=== PATIENT | female | born 1980 | race Caucasian/White ===

== ENCOUNTER 2022-02-16 17:05 | Emergency (ER) | payer MEDICAID | END 2022-02-16 19:28 | disposition home or self-care (01) | LOC: JP.ED 17:05 | DX: S93.501A Unspecified sprain of right great toe, initial encounter (principal); S90.31XA Contusion of right foot, initial encounter; F17.210 Nicotine dependence, cigarettes, uncomplicated; Z88.0 Allergy status to penicillin; W20.8XXA Other cause of strike by thrown, projected or falling object, initial encounter | CPT/HCPCS: 73630-26-RT; 73630-RT; 99283 ==